=== PATIENT | female | born 1955 | race Caucasian/White ===

== ENCOUNTER 2019-04-08 11:23 | Inpatient (IN) ==
[2019-04-08 12:07] LABS: Basophils # 0.1 10*3/uL (0.0-0.2); Basophils % 0.4 % (0.0-0.8); Hematocrit 46.6 VOL% (35.7-47.0); Hemoglobin 14.4 GM/DL (12.0-16.0); Immature Granulocytes % 0.7 %; Immature Granulocytes Absolute 0.12 #; Lymphocytes # 1.1 10*3/uL (1.4-4.0); Lymphocytes % 5.7 % (21.3-54.2); Mean Corpuscular HGB Conc 30.9 GM/DL (32-36); Mean Corpuscular Volume 95.9 FL (87-102); Mean Platelet Volume 12.4 FL (9.6-12.0); Monocytes % 7.9 % (1.7-12.7); Neutrophils % 85.3 % (38.7-73.9); Platelet Count 271 T/CUMM (130-400); Red Blood Count 4.86 MC/CUMM (3.8-5.5); Red Cell Distribution Width 16.3 % (9.3-17.3); White Blood Count 18.3 T/CUMM (4-12)
[2019-04-08 12:21] LABS: Apearance,Urine CLOUDY (Clear); Bacteria,Urine Many /HPF (Few); Bilirubin,Urine Negative (Negative); Blood, Urine Large mg/dL (Negative); Glucose,Urine (UA) Negative (Negative); Ketones,Urine Negative (Negative); Nitrite,Urine Positive (Negative); Protein,Urine 30 MG/DL; RBC,Urine 380 /HPF (0-4); Urine Color Yellow (Yellow); Urine Specific Gravity 1.014 (1.001-1.035); Urine Urobilinogen < 2.0 EU/DL (0.2-1.0); WBC,Urine 1494 /HPF (0-6)
[2019-04-08 12:34] LABS: Alanine Aminotransferase 20 U/L (13-56); Albumin 1.9 G/DL (3.4-5.0); Alkaline Phosphatase 141 U/L (45-117); Aspartate Amino Transferase 20 U/L (0-37); Bilirubin,Total < 0.39 MG/DL (0.2-1.0); Blood Urea Nitrogen 66 MG/DL (7-18); Calcium 8.7 MG/DL (8.5-10.1); Estimated Glom Filtration Rate 18 ML/MIN; Glucose 107 MG/DL (74-106); Osmolality,Calculated 343.9 MOS/KG (273-304); Total Protein 7.9 G/DL (6.4-8.3)
[2019-04-08] MEDS ORDERED: SODIUM CHLORIDE 0.9% 1,000 ML IV SCH (13:00)
[2019-04-08] MEDS ORDERED: ACETAMINOPHEN 325 MG TABLET PO PRN (14:41)
[2019-04-08] MEDS ORDERED: ONDANSETRON 4 MG/2 ML VIAL IV PRN (14:41)
[2019-04-08] MEDS: DEXTROSE 5% 1,000 ML IV SCH ×2 (16:04→22:55)
[2019-04-08] MEDS: cefTRIAXone 1,000 MG in SYRINGE 1 EACH IV SCH (16:09)
[2019-04-08] MEDS: ENOXAPARIN 30 MG/0.3 ML SYRINGE SUBCUT SCH (16:09)
[2019-04-08 16:30] LABS: Calcium 8.3 MG/DL (8.5-10.1)
[2019-04-08 19:39] LABS: Calcium 8.2 MG/DL (8.5-10.1)
[2019-04-08] MEDS ORDERED: LORazepam 2 MG/1 ML VIAL IV ONE (21:41)
[2019-04-08] MEDS ORDERED: LORazepam 2 MG/1 ML VIAL ONE (21:47)
[2019-04-08 22:21] LABS: Calcium 7.7 MG/DL (8.5-10.1); Osmolality,Calculated 336.5 MOS/KG (273-304)
[2019-04-09 03:16] LABS: Basophils # 0.1 10*3/uL (0.0-0.2); Basophils % 0.5 % (0.0-0.8); Hematocrit 39.6 VOL% (35.7-47.0); Hemoglobin 11.9 GM/DL (12.0-16.0); Immature Granulocytes % 0.9 %; Immature Granulocytes Absolute 0.14 #; Lymphocytes # 1.4 10*3/uL (1.4-4.0); Mean Corpuscular HGB Conc 30.1 GM/DL (32-36); Mean Corpuscular Volume 97.5 FL (87-102); Mean Platelet Volume 12.3 FL (9.6-12.0); Monocytes % 7.4 % (1.7-12.7); Neutrophils % 82.2 % (38.7-73.9); Platelet Count 203 T/CUMM (130-400); Red Blood Count 4.06 MC/CUMM (3.8-5.5); Red Cell Distribution Width 16.1 % (9.3-17.3); White Blood Count 15.3 T/CUMM (4-12)
[2019-04-09 03:45] LABS: Calcium 7.7 MG/DL (8.5-10.1); Osmolality,Calculated 325.2 MOS/KG (273-304)
[2019-04-09] MEDS: DEXTROSE 5% 1,000 ML IV SCH ×2 (05:58→13:57)
[2019-04-09] MEDS: LEVOTHYROXINE 112 MCG TABLET PO SCH (06:01)
[2019-04-09 06:51] LABS: Calcium 7.7 MG/DL (8.5-10.1); Osmolality,Calculated 311.1 MOS/KG (273-304)
[2019-04-09 12:29] LABS: Calcium 7.7 MG/DL (8.5-10.1); Osmolality,Calculated 300.6 MOS/KG (273-304)
[2019-04-09] MEDS: ENOXAPARIN 30 MG/0.3 ML SYRINGE SUBCUT SCH (15:40)
[2019-04-09] MEDS: cefTRIAXone 1,000 MG in SYRINGE 1 EACH IV SCH (15:40)
[2019-04-10] MEDS: DEXTROSE 5% 1,000 ML IV SCH ×2 (00:02→11:01)
[2019-04-10] MEDS: LEVOTHYROXINE 112 MCG TABLET PO SCH (06:28)
[2019-04-10 07:49] LABS: Basophils # 0.1 10*3/uL (0.0-0.2); Basophils % 0.5 % (0.0-0.8); Hematocrit 39.8 VOL% (35.7-47.0); Hemoglobin 12.4 GM/DL (12.0-16.0); Immature Granulocytes Absolute 0.35 #; Lymphocytes # 1.3 10*3/uL (1.4-4.0); Lymphocytes % 7.6 % (21.3-54.2); Mean Corpuscular HGB Conc 31.2 GM/DL (32-36); Mean Corpuscular Volume 94.8 FL (87-102); Mean Platelet Volume 12.8 FL (9.6-12.0); Monocytes % 5.1 % (1.7-12.7); Neutrophils % 84.8 % (38.7-73.9); Platelet Count 185 T/CUMM (130-400); Red Cell Distribution Width 14.9 % (9.3-17.3); White Blood Count 17.3 T/CUMM (4-12)
[2019-04-10 13:59] LABS: Calcium 7.8 MG/DL (8.5-10.1)
[2019-04-10] MEDS: cefTRIAXone 1,000 MG in SYRINGE 1 EACH IV SCH (15:17)
[2019-04-10] MEDS: ENOXAPARIN 30 MG/0.3 ML SYRINGE SUBCUT SCH (15:17)
[2019-04-11] MEDS: DEXTROSE 5% 1,000 ML IV SCH ×4 (00:08→20:52)
[2019-04-11 05:50] LABS: Basophils # 0.1 10*3/uL (0.0-0.2); Basophils % 0.4 % (0.0-0.8); Hematocrit 37.2 VOL% (35.7-47.0); Hemoglobin 11.8 GM/DL (12.0-16.0); Immature Granulocytes Absolute 0.48 #; Lymphocytes # 1.4 10*3/uL (1.4-4.0); Lymphocytes % 11.4 % (21.3-54.2); Mean Corpuscular HGB Conc 31.7 GM/DL (32-36); Mean Platelet Volume 13.4 FL (9.6-12.0); Monocytes % 4.5 % (1.7-12.7); Neutrophils % 79.7 % (38.7-73.9); Platelet Count 211 T/CUMM (130-400); Red Cell Distribution Width 14.6 % (9.3-17.3); White Blood Count 12.1 T/CUMM (4-12)
[2019-04-11 06:09] LABS: Albumin 1.7 G/DL (3.4-5.0); Bilirubin,Total 0.7 MG/DL (0.2-1.0); Calcium 7.8 MG/DL (8.5-10.1); Osmolality,Calculated 291.8 MOS/KG (273-304); Total Protein 6.3 G/DL (6.4-8.3)
[2019-04-11] MEDS: LEVOTHYROXINE 112 MCG TABLET PO SCH (07:31)
[2019-04-11] MEDS: POTASSIUM CHLORIDE 20 MEQ TABLET PO PRN ×3 (09:50→17:03)
[2019-04-11] MEDS: ENOXAPARIN 30 MG/0.3 ML SYRINGE SUBCUT SCH (14:44)
[2019-04-11] MEDS: cefTRIAXone 1,000 MG in SYRINGE 1 EACH IV SCH (14:44)
[2019-04-11] MEDS ORDERED: DONEPEZIL 10 MG TABLET PO SCH (21:00)
[2019-04-12] MEDS: LEVOTHYROXINE 112 MCG TABLET PO SCH (06:37)
[2019-04-12 07:29] LABS: Basophils # 0.1 10*3/uL (0.0-0.2); Basophils % 0.4 % (0.0-0.8); Hematocrit 33.8 VOL% (35.7-47.0); Hemoglobin 10.6 GM/DL (12.0-16.0); Immature Granulocytes % 4.5 %; Immature Granulocytes Absolute 0.81 #; Lymphocytes # 1.4 10*3/uL (1.4-4.0); Lymphocytes % 7.9 % (21.3-54.2); Mean Corpuscular HGB Conc 31.4 GM/DL (32-36); Mean Corpuscular Volume 92.6 FL (87-102); Monocytes % 5.4 % (1.7-12.7); Neutrophils % 81.8 % (38.7-73.9); Platelet Count 224 T/CUMM (130-400); Red Blood Count 3.65 MC/CUMM (3.8-5.5); Red Cell Distribution Width 14.6 % (9.3-17.3)
[2019-04-12 08:10] LABS: Lymphocytes 11 % (20-55); Platelet Estimate Adequate; Segmented Neutrophils 84 % (50-85); Total Cells Counted 100
[2019-04-12 08:11] LABS: Hypochromasia 1+
[2019-04-12] MEDS: DEXTROSE 5% 1,000 ML IV SCH (10:00)
[2019-04-12] MEDS: ENOXAPARIN 30 MG/0.3 ML SYRINGE SUBCUT SCH (10:08)
[2019-04-12] MEDS: cefTRIAXone 1,000 MG in SYRINGE 1 EACH IV SCH (10:08)
[2019-04-12 16:17] VITALS: BP 101/70
== END 2019-04-12 16:10 | DRG 682 ==
LOC: N.ED 11:23 → N.EDINP 13:52 → SUATTDRO 13:52 → N.EDINP 15:31 → N.2E 15:48 → N.ICU 18:04 → N.2E 04-09 14:24
PROVIDERS: ADMIT Internal Medicine; ATTEND Internal Medicine

== ENCOUNTER 2019-06-06 05:55 | Inpatient (IN) ==
[2019-06-06 06:52] LABS: Allen Test Positive
[2019-06-06 06:54] LABS: ABG Base Excess 0.4 MMOL/L (-2.5-2.5); ABG HCO3 24.8 MMOL/L (20-26); ABG Oxygen Saturation 97.7 % (95-100); ABG PCO2 39.7 MM HG (35-48); ABG PH 7.408 (7.35-7.45); ABG PO2 94.6 MM HG (80-95); ABG TCO2 21.7 MMOL/L (23-27)
[2019-06-06 06:59] LABS: Basophils # 0.1 10*3/uL (0.0-0.2); Basophils % 0.8 % (0.0-0.8); Hematocrit 42.9 VOL% (35.7-47.0); Hemoglobin 13.3 GM/DL (12.0-16.0); Immature Granulocytes % 0.5 %; Immature Granulocytes Absolute 0.07 #; Lymphocytes # 1.1 10*3/uL (1.4-4.0); Mean Corpuscular Volume 95.8 FL (87-102); Mean Platelet Volume 11.2 FL (9.6-12.0); Neutrophils % 84.7 % (38.7-73.9); Platelet Count 208 T/CUMM (130-400); Red Blood Count 4.48 MC/CUMM (3.8-5.5); Red Cell Distribution Width 16.9 % (9.3-17.3); White Blood Count 15.3 T/CUMM (4-12)
[2019-06-06 07:06] LABS: Apearance,Urine CLEAR (Clear); Bacteria,Urine Occasional /HPF (Few); Bilirubin,Urine Negative (Negative); Blood, Urine Negative (Negative); Glucose,Urine (UA) Negative (Negative); Ketones,Urine Negative (Negative); Mucus,Urine Occasional /LPF (Occasional); Nitrite,Urine Negative (Negative); Protein,Urine Negative; RBC,Urine 3 /HPF (0-4); Squamous Epithelial Cell,Urine Occasional /HPF (0-10); Urine Color Yellow (Yellow); Urine Specific Gravity 1.016 (1.001-1.035); Urine Urobilinogen < 2.0 EU/DL (0.2-1.0); WBC,Urine 4 /HPF (0-6)
[2019-06-06 07:10] LABS: Alanine Aminotransferase 21 U/L (13-56); Albumin 2.5 G/DL (3.4-5.0); Alkaline Phosphatase 145 U/L (45-117); Aspartate Amino Transferase 19 U/L (0-37); Bilirubin,Total < 0.39 MG/DL (0.2-1.0); Blood Urea Nitrogen 14 MG/DL (7-18); Calcium 8.5 MG/DL (8.5-10.1); Estimated Glom Filtration Rate 47 ML/MIN; Glucose 112 MG/DL (74-106); Osmolality,Calculated 289.7 MOS/KG (273-304); Total Protein 7.4 G/DL (6.4-8.3)
[2019-06-06] MEDS ORDERED: ALBUTEROL/IPRATROPIUM 3 ML NEB RESP TX STA (07:52)
[2019-06-06] MEDS ORDERED: LEVOFLOXACIN INJ 500 MG in PREMIX 1 EACH IV STA (07:53)
[2019-06-06] MEDS ORDERED: PIPERACILLIN/TAZOBACTAM 3,375 MG in SODIUM CHLORIDE 0.9% 100 ML IV STA (07:53)
[2019-06-06] MEDS ORDERED: ACETAMINOPHEN 325 MG TABLET PO PRN (07:58)
[2019-06-06] MEDS ORDERED: ONDANSETRON 4 MG/2 ML VIAL IV PRN (07:58)
[2019-06-06] MEDS ORDERED: PROMETHAZINE 25 MG/1 ML VIAL IM PRN (07:58)
[2019-06-06] MEDS: ENOXAPARIN 40 MG/0.4 ML SYRINGE SUBCUT SCH (08:28)
[2019-06-06] MEDS: SODIUM CHLORIDE 0.9% 1,000 ML IV SCH (08:28)
[2019-06-06] MEDS: LEVOFLOXACIN INJ 500 MG in PREMIX 1 EACH IV SCH (08:29)
[2019-06-06] MEDS: PIPERACILLIN/TAZOBACTAM 3,375 MG in SODIUM CHLORIDE 0.9% 100 ML IV SCH ×2 (08:58→16:58)
[2019-06-06] MEDS: DORNASE ALFA 2.5 MG/2.5 ML VIAL RESP TX SCH ×2 (10:00→18:54)
[2019-06-06] MEDS: PANTOPRAZOLE 40 MG TABLET PO SCH (10:15)
[2019-06-06] MEDS ORDERED: INFLUENZA VIRUS VACCINE 0.5 ML SYRINGE IM ONE (10:35)
[2019-06-06 11:39] LABS: Free T4 (Free Thyroxine) 1.51 NG/DL (0.76-1.46)
[2019-06-06] MEDS ORDERED: BISACODYL 5 MG TABLET PO PRN (11:43)
[2019-06-06] MEDS ORDERED: ALBUTEROL/IPRATROPIUM 3 ML NEB RESP TX SCH (13:00)
[2019-06-06] MEDS: ALBUTEROL 0.63 MG/3 ML NEB RESP TX SCH (18:54)
[2019-06-06] MEDS ORDERED: DONEPEZIL 10 MG TABLET PO SCH (21:00)
[2019-06-06] MEDS: CYCLOBENZAPRINE 10 MG TABLET PO SCH (22:20)
[2019-06-06] MEDS: LORazepam 0.5 MG TABLET PO SCH (22:20)
[2019-06-07] MEDS: ALBUTEROL 0.63 MG/3 ML NEB RESP TX SCH (00:09)
[2019-06-07] MEDS: PIPERACILLIN/TAZOBACTAM 3,375 MG in SODIUM CHLORIDE 0.9% 100 ML IV SCH ×3 (01:04→19:35)
[2019-06-07] MEDS ORDERED: ALBUTEROL 0.63 MG/3 ML NEB RESP TX PRN (04:04)
[2019-06-07] MEDS: MORPHINE 4 MG/1 ML VIAL IV PRN ×2 (04:22→19:25)
[2019-06-07] MEDS ORDERED: MORPHINE 4 MG/1 ML VIAL IV ONE (05:01)
[2019-06-07 05:28] LABS: Basophils # 0.1 10*3/uL (0.0-0.2); Basophils % 0.7 % (0.0-0.8); Hemoglobin 12.6 GM/DL (12.0-16.0); Immature Granulocytes % 3.1 %; Immature Granulocytes Absolute 0.49 #; Lymphocytes # 1.8 10*3/uL (1.4-4.0); Lymphocytes % 10.9 % (21.3-54.2); Mean Corpuscular HGB Conc 30.7 GM/DL (32-36); Mean Corpuscular Volume 98.1 FL (87-102); Mean Platelet Volume 11.5 FL (9.6-12.0); Monocytes % 7.7 % (1.7-12.7); Neutrophils % 77.6 % (38.7-73.9); Platelet Count 211 T/CUMM (130-400); Red Blood Count 4.18 MC/CUMM (3.8-5.5)
[2019-06-07 05:53] LABS: Calcium 8.4 MG/DL (8.5-10.1); Osmolality,Calculated 288.8 MOS/KG (273-304); Risk Ratio 3.4
[2019-06-07] MEDS: LEVOTHYROXINE 88 MCG TABLET PO SCH (07:50)
[2019-06-07] MEDS: DORNASE ALFA 2.5 MG/2.5 ML VIAL RESP TX SCH ×2 (07:59→18:50)
[2019-06-07] MEDS ORDERED: CYANOCOBALAMIN 1000 MCG/1 ML VIAL IM SCH (09:00)
[2019-06-07] MEDS: CHOLECALCIFEROL 1,000 UNIT TABLET PO SCH (09:14)
[2019-06-07] MEDS: COLCHICINE 0.6 MG CAPSULE PO SCH (09:14)
[2019-06-07] MEDS: PANTOPRAZOLE 40 MG TABLET PO SCH (09:14)
[2019-06-07] MEDS: LORazepam 0.5 MG TABLET PO SCH ×2 (09:14→21:39)
[2019-06-07] MEDS: CETIRIZINE 10 MG TABLET PO SCH (09:14)
[2019-06-07] MEDS: ESCITALOPRAM 10 MG TABLET PO SCH (09:14)
[2019-06-07] MEDS: SODIUM CHLORIDE 0.9% 1,000 ML IV SCH (09:34)
[2019-06-07] MEDS: ENOXAPARIN 40 MG/0.4 ML SYRINGE SUBCUT SCH (09:34)
[2019-06-07] MEDS: LEVOFLOXACIN INJ 500 MG in PREMIX 1 EACH IV SCH (09:35)
[2019-06-07] MEDS: VANCOMYCIN INJ 750 MG in SODIUM CHLORIDE 0.9% 250 ML IV SCH (09:35)
[2019-06-07] MEDS: CYCLOBENZAPRINE 10 MG TABLET PO SCH (21:39)
[2019-06-08] MEDS: PIPERACILLIN/TAZOBACTAM 3,375 MG in SODIUM CHLORIDE 0.9% 100 ML IV SCH (02:53)
[2019-06-08] MEDS: SODIUM CHLORIDE 0.9% 1,000 ML IV SCH (03:05)
[2019-06-08 06:19] LABS: Basophils # 0.1 10*3/uL (0.0-0.2); Basophils % 0.4 % (0.0-0.8); Hematocrit 36.2 VOL% (35.7-47.0); Immature Granulocytes % 1.2 %; Lymphocytes # 0.9 10*3/uL (1.4-4.0); Lymphocytes % 3.5 % (21.3-54.2); Mean Corpuscular HGB Conc 30.4 GM/DL (32-36); Mean Corpuscular Volume 99.5 FL (87-102); Mean Platelet Volume 11.8 FL (9.6-12.0); Monocytes % 4.9 % (1.7-12.7); Platelet Count 177 T/CUMM (130-400); Red Blood Count 3.64 MC/CUMM (3.8-5.5); Red Cell Distribution Width 17.8 % (9.3-17.3)
[2019-06-08 06:29] LABS: Calcium 8.1 MG/DL (8.5-10.1); Osmolality,Calculated 306.7 MOS/KG (273-304)
[2019-06-08 06:39] LABS: Hypochromasia 1+; Lymphocytes 5 % (20-55); Platelet Estimate Adequate; Segmented Neutrophils 92 % (50-85); Total Cells Counted 100
[2019-06-08] MEDS: LEVOTHYROXINE 88 MCG TABLET PO SCH (07:25)
[2019-06-08] MEDS: DORNASE ALFA 2.5 MG/2.5 ML VIAL RESP TX SCH ×2 (07:33→20:14)
[2019-06-08] MEDS: PANTOPRAZOLE 40 MG TABLET PO SCH (09:01)
[2019-06-08] MEDS: CETIRIZINE 10 MG TABLET PO SCH (09:01)
[2019-06-08] MEDS: LORazepam 0.5 MG TABLET PO SCH (09:01)
[2019-06-08] MEDS: COLCHICINE 0.6 MG CAPSULE PO SCH (09:02)
[2019-06-08] MEDS: ESCITALOPRAM 10 MG TABLET PO SCH (09:02)
[2019-06-08] MEDS: CHOLECALCIFEROL 1,000 UNIT TABLET PO SCH ×2 (09:03→09:24)
[2019-06-08] MEDS: ENOXAPARIN 40 MG/0.4 ML SYRINGE SUBCUT SCH (09:03)
[2019-06-08] MEDS: VANCOMYCIN INJ 750 MG in SODIUM CHLORIDE 0.9% 250 ML IV SCH (09:14)
[2019-06-08] MEDS ORDERED: SODIUM CHLORIDE 0.45% 1,000 ML IV SCH (13:30)
[2019-06-08 16:38] VITALS: BP 97/73
[2019-06-08] MEDS ORDERED: PIPERACILLIN/TAZOBACTAM 3,375 MG in SODIUM CHLORIDE 0.9% 100 ML IV SCH (21:00)
[2019-06-09] MEDS ORDERED: LEVOFLOXACIN INJ 500 MG in PREMIX 1 EACH IV SCH (09:00)
== END 2019-06-08 20:45 | disposition expired | DRG 189 ==
LOC: EDBD → EDUNIT# → N.ED 05:55 → N.EDINP 05:55 → N.5E 08:37
PROVIDERS: ADMIT Hospitalist; ATTEND Hospitalist